=== PATIENT | male | born 1980 | race Caucasian/White ===

== ENCOUNTER → 2016-07-27 07:28 | Outpatient (CLI) | payer OTHER | END | disposition home or self-care (01) | LOC: D.US 07:28 | DX: K80.20 Calculus of gallbladder without cholecystitis without obstruction (principal) ==

== ENCOUNTER → 2016-08-17 12:03 | Outpatient (CLI) | payer OTHER | END | disposition home or self-care (01) | LOC: D.NM 12:03 | DX: K82.9 Disease of gallbladder, unspecified (principal); R10.9 Unspecified abdominal pain ==